=== PATIENT | female | born 1965 | race African-American/Black ===

== ENCOUNTER 2017-03-25 17:13 | Emergency (ER) | payer MEDICARE, OTHER ==
[~2017-03-25] VITALS: Ht 149.9 cm; Wt 99.8 kg
[2017-03-25 18:56] VITALS: BP 111/57
[2017-03-25 19:03] LABS: BASOPHILS % (AUTO) 1.4 % (0.0-2.0); EOSINOPHILS % (AUTO) 4.3 % (0.0-3.0); LYMPHOCYTES % (AUTO) 47.6 % (20.0-45.0); MEAN CORPUSCULAR HEMOGLOBIN 32.7 PG (27.0-31.0); MEAN CORPUSCULAR HGB CONC 33.2 G/DL (32.0-36.0); MEAN CORPUSCULAR VOLUME 99 FL (80-99); MEAN PLATELET VOLUME 6.3 FL (6.5-10.1); NEUTROPHILS % (AUTO) 37.7 % (45.0-75.0); PLATELET COUNT 309 K/UL (150-450); RED BLOOD COUNT 4.05 M/UL (4.20-5.40); RED CELL DISTRIBUTION WIDTH 12.8 % (11.6-14.8); WHITE BLOOD COUNT 6.6 K/UL (4.8-10.8)
[2017-03-25 19:10] LABS: ALBUMIN/GLOBULIN RATIO 1.4 (1.0-2.7); CALCIUM 9.3 mg/dL (8.6-10.2); CREATININE 1.3 mg/dL (0.5-0.9); GLOMERULAR FILTRATION RATE 51.9 mL/min (>60); POTASSIUM 3.7 mEQ/L (3.4-4.9); TOTAL PROTEIN 7.2 g/dL (6.6-8.7); TROPONIN I < 0.30 ng/mL (<=0.30)
[2017-03-25 19:20] LABS: CKMB 2.9 ng/mL (< 3.8)
[2017-03-25 19:55] VITALS: BP 108/58
--- NOTE | 2017-03-25 22:18 | Emergency Room Report ---
History of Present Illness General Chief Complaint: Stroke Symptoms Source: Patient Present Illness HPI 51-year-old female presents to ED for evaluation. Patient notes right facial twitching and right leg cramping sensation. Started a few hours ago prior to arrival. Patient states she went to a service today. Feels stressed. Patient notes history of fibromyalgia. Denies any slurred speech or facial droop. Denies any arm or leg weakness. Denies any chest pain shortness of breath. No aggravating relieving factors. Denies any other associated symptoms Allergies: Coded Allergies: GABAPENTIN (Unverified Allergy, Severe, Hives, 12/20/15) IODINATED CONTRAST MEDIA - IV DYE (Unverified Allergy, Severe, Anaphylaxis , 12/20/15) Patient History Past Medical History: HTN Past Surgical History: none Pertinent Family History: none Social History: Denies: alcohol use, drug use, smoking Last Menstrual Period: N/A Now: No Immunizations: UTD Reviewed Nursing Documentation: PMH: Agreed, PSxH: Agreed Nursing Documentation-PMH Hx Hypertension: Yes Review of Systems All Other Systems: negative except mentioned in HPI Physical Exam Vital Signs Date Time Temp Pulse Resp B/P Pulse Ox O2 Delivery O2 Flow Rate FiO2 03/25/17 17:22 97.2 71 23 121/61 100 Room Air Sp02 EP Interpretation: reviewed, normal General Appearance: no apparent distress, alert, GCS 15, non-toxic Head: normocephalic, atraumatic Eyes: bilateral eye PERRL, bilateral eye normal inspection ENT: hearing grossly normal, normal pharynx, no angioedema, normal voice Neck: full range of motion, supple/symm/no masses Respiratory: chest non-tender, lungs clear, normal breath sounds, speaking full sentences Cardiovascular #1: regular rate, rhythm, no edema Cardiovascular #2: 2+ carotid (R), 2+ carotid (L), 2+ radial (R), 2+ radial (L) , 2+ dorsalis pedis (R), 2+ dorsalis pedis (L) Gastrointestinal: normal bowel sounds, non tender, soft, non-distended, no guarding, no rebound Rectal: deferred Genitourinary: normal inspection, no CVA tenderness Musculoskeletal: back normal, gait/station normal, normal range of motion, non- tender Neurologic: alert, oriented x3, responsive, 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, motor strength/tone normal, sensory intact, cerebellar normal, normal gait, speech normal Psychiatric: judgement/insight normal, memory normal, mood/affect normal, no suicidal/homicidal ideation Reflexes: 3+ bicep (R), 3+ bicep (L), 3+ tricep (R), 3+ tricep (L), 3+ knee (R) , 3+ knee (L) Skin: normal color, no rash, warm/dry, well hydrated Lymphatic: no adenopathy Medical Decision Making Diagnostic Impression: Primary Impression: Muscle cramps Additional Impression: Fibromyalgia ER Course Hospital Course 51-year-old female presents to ED complaining of right facial twitching and right leg cramping. Differential diagnoses include: arrythmia, dehydration, intracranial bleed, seizure Clinical course Patient placed on stretcher. on rn cardiac rehab. After initial history and physical I ordered labs, EKG, chest Xray, IVFs, CT Brain labs reviewed- no leukocytosis, Hb/Hct stable, electrolytes ok, troponins negative CT Brain - unremarkable Chest x-ray- no acute process EKG - NSR, no acute changes interpreted by me Upon reassessment patient states she feels better wishes to go home. Patient had no focal deficits suggestive of stroke. I believe it was related to her history of fibromyalgia, perhaps some dehydration being in the sun all day today I. I feel this is a highly complex case requiring extensive working including EKG/Rhythm strip, Xray/CT/US, Blood/urine lab work, repeat exams while in ED, and administration of strong opiates/narcotics for pain control, admission to hospital or close patient follow up. Diagnosis - muscle cramps, fibromyalgia Stable and discharged to home. Followup with PMD. Return to ED if symptoms recur or worsen Labs Test 03/25/17 18:20 White Blood Count 6.6 K/UL (4.8-10.8) Red Blood Count 4.05 M/UL (4.20-5.40) Hemoglobin 13.3 G/DL (12.0-16.0) Hematocrit 39.9 % (37.0-47.0) Mean Corpuscular Volume 99 FL (80-99) Mean Corpuscular Hemoglobin 32.7 PG (27.0-31.0) Mean Corpuscular Hemoglobin Concent 33.2 G/DL (32.0-36.0) Red Cell Distribution Width 12.8 % (11.6-14.8) Platelet Count 309 K/UL (150-450) Mean Platelet Volume 6.3 FL (6.5-10.1) Neutrophils (%) (Auto) 37.7 % (45.0-75.0) Lymphocytes (%) (Auto) 47.6 % (20.0-45.0) Monocytes (%) (Auto) 9.0 % (1.0-10.0) Eosinophils (%) (Auto) 4.3 % (0.0-3.0) Basophils (%) (Auto) 1.4 % (0.0-2.0) Sodium Level 139 mEQ/L (135-145) Potassium Level 3.7 mEQ/L (3.4-4.9) Chloride Level 99 mEQ/L (98-107) Carbon Dioxide Level 30 mEQ/L (20-30) Anion Gap 10 (5-15) Blood Urea Nitrogen 22 mg/dL (7-23) Creatinine 1.3 mg/dL (0.5-0.9) Estimat Glomerular Filtration Rate 51.9 mL/min (>60) Glucose Level 84 mg/dL (74-106) Calcium Level 9.3 mg/dL (8.6-10.2) Total Bilirubin 0.3 mg/dL (0.0-1.2) Aspartate Amino Transf (AST/SGOT) 14 U/L (5-40) Alanine Aminotransferase (ALT/SGPT) 14 U/L (3-33) Alkaline Phosphatase 68 U/L (35-104) Total Creatine Kinase 154 U/L (26-140) Creatine Kinase MB 2.9 ng/mL (< 3.8) Creatine Kinase MB Relative Index 1.8 Troponin I < 0.30 ng/mL (<=0.30) Total Protein 7.2 g/dL (6.6-8.7) Albumin 4.2 g/dL (3.5-5.2) Globulin 3.0 g/dL Albumin/Globulin Ratio 1.4 (1.0-2.7) EKG Diagnostic Results Rate: normal Rhythm: NSR ST Segments: no acute changes ASA given to the pt in ED: No Rhythm Strip Diag. Results EP Interpretation: yes Rhythm: NSR, no PVC's, no ectopy Chest X-Ray Diagnostic Results Chest X-Ray Diagnostic Results : Chest X-Ray Ordered: Yes # of Views/Limited/Complete: 1 View Indication: Other - weakness EP Interpretation: Yes Interpretation: no consolidation, no effusion, no pneumothorax, no acute cardiopulmonary disease Impression: No acute disease Interpreting ER Provider: electronically signed by Daniel Kim MD CT/MRI/US Diagnostic Results CT/MRI/US Diagnostic Results : Imaging Test Ordered: CT head Impression no acute process Last Vital Signs Date Time Temp Pulse Resp B/P Pulse Ox O2 Delivery O2 Flow Rate FiO2 03/25/17 18:56 75 18 111/57 99 Room Air 03/25/17 17:22 97.2 Status: improved Disposition: HOME, SELF-CARE Condition: Stable Patient Instructions: Muscle Cramps and Spasms, [id number] DANIEL KIM M.D. Mar 25, 2017 22:18
--- NOTE | 2017-03-26 10:09 | Diagnostic Imaging Report ---
Indications: Headache Technique: Continuous helical CT imaging of the brain was performed with automatic exposure control on a Siemens sensation [address] scanner. Axial and coronal images were reconstructed at 5 mm slice thickness and interval. CTDI volume(s): 70 mGy Total DLP: 1340 mGy-cm Findings: Comparison: None. Motion artifact degrades images. 1 cm densely calcified nodule resides along the undersurface of the left side of the tentorium cerebelli. No evidence of additional mass, hemorrhage, other attenuation abnormality, mass effect, midline shift, hydrocephalus or increased intracranial pressure. Bone window images are unremarkable. Visualized paranasal sinuses and mastoid air cells are clear. IMPRESSION: No evidence of acute intracranial pathology, limited as described Tentorial calcification versus adjacent small calcified meningioma. The CT scanner at [facility] is accredited by the [employer] and the scans are performed using protocols designed to limit radiation exposure to as low as reasonably achievable to attain images of sufficient resolution adequate for diagnostic evaluation.
--- NOTE | 2017-03-26 10:09 | Diagnostic Imaging Report ---
Indication: Chest pain Technique: Single portable AP view of the chest. Findings: Comparison: None. The bones and extra pulmonary soft tissues, cardiomediastinal silhouette, pulmonary vasculature and parenchyma, and pleural surfaces are unremarkable. IMPRESSION: Negative portable AP chest.
== END 2017-03-25 19:55 | disposition home or self-care (01) ==
LOC: EMR 17:45
DX: R25.2 Cramp and spasm (principal); M79.7 Fibromyalgia; I10 Essential (primary) hypertension; Z88.8 Allergy status to other drugs, medicaments and biological substances; Z91.041 Radiographic dye allergy status
CPT/HCPCS: 36415; 70450; 71010; 80053; 82550; 82553; 84484; 85025; 93005; 96360

== ENCOUNTER 2017-04-27 17:55 | Emergency (ER) | payer MEDICARE, OTHER ==
[~2017-04-27] VITALS: Ht 154.9 cm; Wt 96.6 kg
[2017-04-27 18:23] VITALS: BP 156/78
[2017-04-27] MEDS ORDERED: Norco 7.5mg/325mg tab ORAL ONE (18:45)
[2017-04-27 19:30] VITALS: BP 149/81
[2017-04-27] MEDS ORDERED: IBUPROFEN600 MG ORAL (19:37)
[2017-04-27] MEDS ORDERED: NORCO 5-325 TA1 EAC1 ORAL (19:37)
[2017-04-27 20:00] VITALS: BP 149/81
[2017-04-27] MEDS ORDERED: Ketorolac 30mg Inj IM ONE (20:00)
--- NOTE | 2017-04-28 10:44 | Diagnostic Imaging Report ---
Indication: PAIN Technique: 3 views of the left elbow Comparison: none Findings: No acute fractures. No dislocations. No joint effusion. Joint spaces are preserved. Normal mineralization. No radiopaque foreign body. Impression: Negative
--- NOTE | 2017-04-28 10:45 | Diagnostic Imaging Report ---
Indication: PAIN Technique: 3 views of the left shoulder Comparison: none Findings: No acute fractures. No dislocations. There are degenerative changes of the acromioclavicular joint. Impression:No acute process
--- NOTE | 2017-04-28 12:10 | Diagnostic Imaging Report ---
Indication: PAIN Technique: 3 or 4 views left wrist Comparison: None Findings: There are mild degenerative changes of the first metacarpophalangeal joint. No acute fractures. No dislocations. Impression: No acute bony trauma
--- NOTE | 2017-04-28 12:21 | Emergency Room Report ---
History of Present Illness General Chief Complaint: Multiple Trauma/Fall Source: Patient Present Illness HPI The patient is a 51-year-old female for left arm pain after falling today. She states that she was using her walker and tripped on a curb and fell onto the left side. She denies hitting her head or loss of consciousness. It is described as a 10 out of 10 dull ache from the shoulder to the left wrist. She states it is now difficult to move due to pain. She denies any numbness or tingling. She denies any other symptoms including N, V, F, chills, SOB, CP, dizziness Allergies: Coded Allergies: GABAPENTIN (Unverified Allergy, Severe, Hives, 12/20/15) IODINATED CONTRAST MEDIA - IV DYE (Unverified Allergy, Severe, Anaphylaxis , 12/20/15) Patient History Past Medical History: see triage record Pertinent Family History: none Last Menstrual Period: na Now: No Reviewed Nursing Documentation: PMH: Agreed, PSxH: Agreed Nursing Documentation-PMH Past Medical History: No History, Except For Hx Hypertension: Yes Hx Neurological Problems: Yes - chronic back and hip pain, fibromyalgia Review of Systems All Other Systems: negative except mentioned in HPI Physical Exam Vital Signs Date Time Temp Pulse Resp B/P Pulse Ox O2 Delivery O2 Flow Rate FiO2 04/27/17 18:01 98.1 66 18 156/78 98 Room Air Sp02 EP Interpretation: reviewed, normal General Appearance: no apparent distress, alert, GCS 15, non-toxic Head: normocephalic, atraumatic Eyes: bilateral eye PERRL, bilateral eye normal inspection ENT: hearing grossly normal, normal pharynx, no angioedema, normal voice Neck: full range of motion, no bony tend, supple/symm/no masses Respiratory: chest non-tender, lungs clear, normal breath sounds, speaking full sentences Musculoskeletal: normal inspection, decreased range of motion - L shoulder, tender - TTP over the L anterior deltoid Neurologic: alert, oriented x3, responsive, motor strength/tone normal, sensory intact, speech normal Psychiatric: judgement/insight normal, memory normal, mood/affect normal, no suicidal/homicidal ideation Skin: abrasions - L elbow Lymphatic: no adenopathy Procedures Splinting Splinting : Consent: Verbal Location: L arm Pre-Made Type: sling Pre-Proc Neuro Vasc Exam: normal Post-Proc Neuro Vasc Exam: normal Patient Tolerated: Well Complications: None Medical Decision Making PA Attestation Dr. Monsalve is my supervising physician. Patient management was discussed with my supervising physician Diagnostic Impression: Primary Impression: Shoulder fracture, left Qualified Codes: S42.92XA - Fracture of left shoulder girdle, part unspecified , initial encounter for closed fracture ER Course The patient is a 51-year-old female presenting with left arm pain after falling Ddx considered include but not limited to sprain/strain, fracture, contusion, dislocation, among others PE: NAD Musculoskeletal: No obvious deformity. Limited active range of motion at the left elbow due to pain. Full active range of motion of the left elbow and wrist. There is tenderness to palpation over the left anterior deltoid, left olecranon , and diffusely over the wrist. Sensation is intact Radial pulse 2+ All x-rays are read as unremarkable by radiologist. X-ray of the left shoulder read by myself and my supervising physician show possible fracture of the proximal humerus A sling was placed and the patient is given pain medications. ER precautions given. She will follow up with primary doctor Other X-Ray Diagnostic Results Other X-Ray Diagnostic Results #1: X-Ray ordered: L shoulder # of Views/Limited Vs Complete: 3 View Indication: Pain EP Interpretation: Yes Interpretation: no dislocation, no soft tissue swelling, other - possible fracture of the L proximal humerus Impression: Other - possible fracture Interpreting ER Provider: Dr. Monsalve PA Scribe Text I am acting as scribe for my supervising physician. My supervising physician's interpretation of the L shoulder xray shows possible fracture of the proximal humerus Other X-Ray Diagnostic Results #2: X-Ray ordered: L elbow # of Views/Limited Vs Complete: 3 View Indication: Pain EP Interpretation: Yes Interpretation: no dislocation, no soft tissue swelling, no fractures Impression: No acute disease Interpreting ER Provider: Myself PA Scribe Text My interpretation of the L elbow xrays are there are no fractures, dislocations or soft tissue swelling. Other X-Ray Diagnostic Results #3: X-Ray ordered: L wrist # of Views/Limited Vs Complete: 3 View Indication: Pain EP Interpretation: Yes Interpretation: no dislocation, no soft tissue swelling, no fractures Impression: No acute disease Interpreting ER Provider: Myself PA Scribe Text My interpretation of the L wrist xray is that it is unremarkable Last Vital Signs Date Time Temp Pulse Resp B/P Pulse Ox O2 Delivery O2 Flow Rate FiO2 04/27/17 20:01 98.1 04/27/17 20:00 81 19 149/81 99 Room Air Status: improved Disposition: HOME, SELF-CARE Condition: Improved Scripts Hydrocodone Bit/Acetaminophen 5-325* (NORCO 5-325 TABLET*) 1 Each Tablet 1 TAB ORAL Q6HR Y for For Pain, #12 TAB Prov: AROLDO DAVIS 04/27/17 Ibuprofen* (MOTRIN*) 600 Mg Tablet 600 MG ORAL Q8H Y for For Pain, #30 TAB 0 Refills Prov: AROLDO DAVIS 04/27/17 [facility] Patient Instructions: Shoulder Fracture Additional Instructions: I discussed my findings with the patient. All questions and concerns have been answered. Treatment and medication compliance have been addressed. I informed the patient that she needs to follow up with her primary doctor and orthopedics as soon as possible. Return to ED if pain remains or worsens, numbness or tingling occurs, new rash is noticed, fever is noticed, or if needed for any reason. Patient verbalized understanding of discharge instructions. AROLDO DAVIS Apr 28, 2017 12:21
== END 2017-04-27 20:00 | disposition home or self-care (01) ==
LOC: EMR 18:56
DX: S42.92XA Fracture of left shoulder girdle, part unspecified, initial encounter for closed fracture (principal); W01.0XXA Fall on same level from slipping, tripping and stumbling without subsequent striking against object, initial encounter; Y92.488 Other paved roadways as the place of occurrence of the external cause; I10 Essential (primary) hypertension; G89.29 Other chronic pain; M79.7 Fibromyalgia; Z91.041 Radiographic dye allergy status; Z88.8 Allergy status to other drugs, medicaments and biological substances
CPT/HCPCS: 29240; 73030; 73080; 73110; 99284; J1885

== ENCOUNTER 2018-04-17 21:37 | Emergency (ER) | payer MEDICARE, OTHER ==
[~2018-04-17] VITALS: Ht 154.9 cm; Wt 96.6 kg
[~2018-04-17 21:37] MED LIST: IBUPROFEN600 MG ORAL; NORCO 5-325 TA1 EAC1 ORAL
--- NOTE | 2018-04-17 22:03 | Emergency Room Report ---
History of Present Illness General Chief Complaint: Earache Present Illness HPI patient is a 52-year-old female with no significant past medical history here complaining of 1 week of right ear pain and feeling her ear is clogged. Denies any URI symptoms, fever, chills, cough. Denies any discharge coming out of her ear or any bleeding, denies hearing loss and tinnitus.. Denies nausea vomiting vertigo dizziness and headache.she further denies any trauma to the ear Allergies: Coded Allergies: GABAPENTIN (Unverified Allergy, Severe, Hives, 12/20/15) IODINATED CONTRAST MEDIA - IV DYE (Unverified Allergy, Severe, Anaphylaxis , 12/20/15) Patient History Past Medical History: see triage record Pertinent Family History: none Now: No Immunizations: UTD Reviewed Nursing Documentation: PMH: Agreed; PSxH: Agreed Nursing Documentation-PMH Hx Hypertension: Yes Hx Neurological Problems: Yes - chronic back and hip pain, fibromyalgia Review of Systems All Other Systems: negative except mentioned in HPI Physical Exam Vital Signs Date Time Temp Pulse Resp B/P (MAP) Pulse Ox O2 Delivery O2 Flow Rate FiO2 04/17/18 21:42 98.2 83 16 121/75 95 Room Air 98.2 Sp02 EP Interpretation: reviewed, normal General Appearance: normal inspection, well appearing Head: normocephalic, atraumatic Eyes: bilateral eye normal inspection, bilateral eye PERRL ENT: normal pharynx, no angioedema, normal voice, other - cerumen impaction of right ear TM not visible. Neck: normal inspection, full range of motion, supple Respiratory: normal inspection, chest non-tender, lungs clear, normal breath sounds, no rhonchi Cardiovascular #1: normal inspection, no murmur Gastrointestinal: normal inspection, soft Rectal: deferred Musculoskeletal: normal inspection Neurologic: normal inspection, alert, oriented x3 Psychiatric: normal inspection, judgement/insight normal Skin: normal inspection, normal color, no rash, warm/dry Lymphatic: normal inspection, no adenopathy Medical Decision Making PA Attestation All diagnoses and treatment plans were reviewed and discussed with my supervising physician Diagnostic Impression: Primary Impression: Otitis externa Additional Impression: Cerumen impaction ER Course patient is a 52-year-old female with no significant past medical history here complaining of 1 week of right ear pain and feeling her ear is clogged. Denies any URI symptoms, fever, chills, cough. Denies any discharge coming out of her ear or any bleeding, denies hearing loss and tinnitus.. Denies nausea vomiting vertigo dizziness and headache.she further denies any trauma to the ear Ddx considered but are not limited to cerumen impaction, otitis externa, otitis media Vital signs: are WNL, pt. is afebrile H&PE are most consistent with ; impaction and otitis externa ORDERS: Augmentin, naproxen,the proximal ED INTERVENTIONS: None required at this time. DISCHARGE: At this time pt. is stable for d/c to home. Will provide printed patient care instructions, and any necessary prescriptions. Care plan and follow up instructions have been discussed with the patient prior to discharge. dishes cerumen impaction antibiotic drops are not indicated as they may not get to the infection therefore oral antibiotics already been Last Vital Signs Date Time Temp Pulse Resp B/P (MAP) Pulse Ox O2 Delivery O2 Flow Rate FiO2 04/17/18 21:42 98.2 83 16 121/75 95 Room Air 98.2 Disposition: HOME, SELF-CARE Condition: Stable Patient Instructions: Cerumen Impaction, Otitis Externa, [id number] Additional Instructions: after finishing antibiotics follow with primary care physician for possible irrigation of the cerumen. Hernandez Tony Apr 17, 2018 22:03
[2018-04-17] MEDS ORDERED: AUGMENTIN 875-1 EAC1 ORAL (22:04)
[2018-04-17] MEDS ORDERED: NAPROXEN250 M1 PO (22:04)
[2018-04-17] MEDS ORDERED: DEBROX15 M1 RIGHT EAR (22:04)
[2018-04-17 22:17] VITALS: BP 121/75
[2018-04-17 22:18] VITALS: BP 121/75
== END 2018-04-17 22:18 | disposition home or self-care (01) ==
LOC: EMR 22:00
DX: H60.91 Unspecified otitis externa, right ear (principal); I10 Essential (primary) hypertension; Z88.8 Allergy status to other drugs, medicaments and biological substances; Z91.041 Radiographic dye allergy status
CPT/HCPCS: 99282

== ENCOUNTER 2018-05-25 16:44 | Emergency (ER) | payer MEDICARE, MEDICAID ==
[~2018-05-25] VITALS: Ht 154.9 cm; Wt 97.1 kg
[~2018-05-25 16:44] MED LIST changes: +AUGMENTIN 875-1 EAC1 ORAL; +DEBROX15 M1 RIGHT EAR; +NAPROXEN250 M1 PO
[2018-05-25 16:57] VITALS: BP 124/75
[2018-05-25] MEDS ORDERED: Ketorolac 60mg Inj IM ONE (17:30)
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
[2018-05-25] MEDS ORDERED: ROBAXIN-750750 MG PO (19:44)
[2018-05-25] MEDS ORDERED: LIDODERM700 M1 TOPIC (19:44)
[2018-05-25] MEDS ORDERED: TRAMADOL HCL50 MG ORAL (19:44)
[2018-05-25 19:52] VITALS: BP 124/75
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
== END 2018-05-25 19:52 | disposition home or self-care (01) ==
LOC: EMR 17:29
DX: M54.42 Lumbago with sciatica, left side (principal); G58.8 Other specified mononeuropathies; M79.7 Fibromyalgia; G89.29 Other chronic pain; V43.62XA Car passenger injured in collision with other type car in traffic accident, initial encounter; Y92.410 Unspecified street and highway as the place of occurrence of the external cause; I10 Essential (primary) hypertension; Z91.041 Radiographic dye allergy status; Z91.09 Other allergy status, other than to drugs and biological substances
CPT/HCPCS: 72131; 96372; 99284